=== PATIENT | male | born 1930 | race Caucasian/White ===

== ENCOUNTER 2017-03-24 15:06 | Emergency (ER) | payer MEDICARE, OTHER ==
[~2017-03-24 15:06] MED LIST: CLARITIN10 MG PO; COLCHICINE0.6 MG PO; COREG6.25 MG PO; GLUCOPHAGE1000 MG PO; LISINOPRIL5 MG PO; LYRICA25 MG PO; NORCO 5/3251 EACH PO; OMEPRAZOLE20 MG PO; PRAVACHOL40 MG PO; XARELTO20 MG PO
== END 2017-03-24 18:05 | disposition home or self-care (01) ==
LOC: FER 15:06
DX: S70.01XA Contusion of right hip, initial encounter (principal); E11.9 Type 2 diabetes mellitus without complications; E78.5 Hyperlipidemia, unspecified; I48.91 Unspecified atrial fibrillation; Z95.0 Presence of cardiac pacemaker; Z88.8 Allergy status to other drugs, medicaments and biological substances; W19.XXXA Unspecified fall, initial encounter; Y92.009 Unspecified place in unspecified non-institutional (private) residence as the place of occurrence of the external cause
CPT/HCPCS: 73502; 99283